=== PATIENT | female | born 1995 | race Caucasian/White ===

== ENCOUNTER 2016-03-03 16:25 | Emergency (ER) | payer OTHER ==
[~2016-03-03] VITALS: Ht 182.9 cm; Wt 64.0 kg
[~2016-03-03 16:25] MED LIST: PRLSR20 PO
[2016-03-03 16:28] VITALS: TEMP 36.5; Ht 182.9 cm; Wt 64.0 kg
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
[2016-03-03 18:32] VITALS: BP 132/96; PULSE 105; O2SAT 98
[2016-03-03] MEDS ORDERED: TRAM-10 PO (18:32)
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
[2016-09-18] MEDS ORDERED: PRT40 PO (12:53)
[2016-09-18] MEDS ORDERED: FRCT/ PO (13:19)
== END 2016-03-03 18:55 | disposition home or self-care (01) ==
LOC: C.EDB 16:27 → C.EDD 18:55
DX: S20.229A Contusion of unspecified back wall of thorax, initial encounter (principal); Y04.0XXA Assault by unarmed brawl or fight, initial encounter; M54.2 Cervicalgia; R07.81 Pleurodynia; J45.909 Unspecified asthma, uncomplicated; F17.210 Nicotine dependence, cigarettes, uncomplicated

== ENCOUNTER 2016-09-16 19:44 | Inpatient (IN) | payer OTHER ==
[~2016-09-16] VITALS: Ht 182.9 cm; Wt 81.4 kg
[2016-09-16] MEDS ORDERED: SODIUM CHLORIDE 0.9% 1000ML 2,000 ML IV STA (20:22)
[2016-09-16] MEDS ORDERED: ACETAMINOPHEN IV 650 MG in EMPTY BAG 0 ML IV STA (20:22)
[2016-09-16] MEDS ORDERED: ONDANSETRON INJ 2 MG/ML 2 ML VIAL IV STA (20:22)
[2016-09-16] MEDS ORDERED: ACETAMINOPHEN 1000 MG/100 ML IV IV ONE (20:31)
[2016-09-16] MEDS ORDERED: ASPI-390 PO (20:41)
[2016-09-16 20:45] LABS: HEMATOCRIT 24.6 % (37-47); MEAN CELL VOLUME 97.2 fL (80-100); MEAN CORPUSCULAR HEMOGLOBIN 32.8 pg (25-34); MEAN CORPUSCULAR HGB CONC 33.7 g/dl (32-36); MEAN PLATELET VOLUME 8.4 fL (7.4-10.4); PLATELET COUNT 222 K/uL (130-400); RED BLOOD COUNT 2.53 M/uL (4.2-5.4); WHITE BLOOD COUNT 9.34 K/uL (4.8-10.8)
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
[2016-09-16 21:08] LABS: ALT/SGPT 16 U/L (12-78); BLOOD UREA NITROGEN 35 mg/dl (7-18); BUN/CREATININE RATIO 36.3 (10-20); CALCIUM 7.9 mg/dl (8.5-10.1); CARBON DIOXIDE 29 mmol/L (21-32); CHLORIDE 110 mmol/L (98-107); CREATININE 0.97 mg/dl (0.60-1.20); GLUCOSE 95 mg/dl (70-99); POTASSIUM 3.9 mmol/L (3.5-5.1); SODIUM 143 mmol/L (136-145)
--- NOTE | 2016-09-16 21:09 | DIAGNOSTIC IMAGING REPORT ---
HEAD WITHOUT CONTRAST (CT) CLINICAL HISTORY: 21 years-old Female with acute headache and lightheadedness. TECHNIQUE: Multiple axial CT images of the head were obtained without contrast. A dose lowering technique was utilized adhering to the principles of ALARA. CT DOSE: 537.48 mGy.cm COMPARISON: CT head 07/06/2015. FINDINGS: No acute intracranial hemorrhage, midline shift, mass, large territorial ischemia or abnormal extra-axial collection. The calvarium is intact. The mastoid air cells, and middle ear cavities are clear. There is mild mucosal thickening of the posterior right ethmoid air cells and the frontal sinuses bilaterally. Soft tissues are within normal limits. IMPRESSION: 1. No acute intracranial abnormality. 2. Mild frontal and ethmoid sinus disease. The above report was generated using voice recognition software. It may contain grammatical, syntax or spelling errors. Electronically signed by: Erik Ventura M.D. 09/16/2016 9:08 PM Dictated Date/Time: 09/16/2016 9:06 PM
[2016-09-16 21:11] LABS: ALKALINE PHOSPHATASE 50 U/L (45-117); AST/SGOT 12 U/L (15-37)
[2016-09-16 21:24] LABS: BASO % 0.2 %; BASO ABS # 0.02 K/uL (0-0.2); COMPLETE YES; EOS % 0.7 %; IG% 0.3 %; LYMPH % 25.8 %; LYMPH ABS # 2.41 K/uL (1.2-3.4); MONO % 6.7 %; NEUT % 66.3 %
[2016-09-16] MEDS ORDERED: PANTOprazole INJ 80 MG in DEXTROSE 5% 100ML 100 ML IV SCH (21:30)
[2016-09-16 21:44] LABS: URINE APPEARANCE CLEAR (CLEAR); URINE BILIRUBIN NEG (NEG); URINE COLOR YELLOW; URINE NITRITE NEG (NEG); URINE PH 5.5 (4.5-7.5); URINE SPECIFIC GRAVITY 1.031 (1.000-1.030); UROBILINOGEN NEG (NEG); ZZUR CULT IF INDIC CLEAN CATCH NO
[2016-09-16 21:45] LABS: MANUAL MICROSCOPIC REQUIRED? NO; REVIEW REQ? NO
--- NOTE | 2016-09-16 22:03 | DIAGNOSTIC IMAGING REPORT ---
ABDOMEN 2VIEW W/PA CHEST RTN HISTORY: 21 years-old Female acute vomiting and nausea. COMPARISON: Chest radiograph 03/03/2016, pelvis radiographs 05/16/2014 and 06/07/2006 TECHNIQUE: Frontal view of the chest with erect and supine views of the abdomen FINDINGS: Cardiomediastinal and hilar silhouettes are within normal limits. No pneumothorax, pleural effusion or focal airspace consolidation. No pneumoperitoneum on the upright view of the abdomen. The bowel gas pattern is nonobstructive. Negative for urolithiasis or acute fracture. 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 Additionally, there are subcortical cystic changes about the left hip. IMPRESSION: 1. No acute cardiopulmonary process. 2. Nonobstructive bowel gas pattern without pneumoperitoneum. 3. 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 The above report was generated using voice recognition software. It may contain grammatical, syntax or spelling errors. Electronically signed by: Erik Ventura M.D. 09/16/2016 10:02 PM Dictated Date/Time: 09/16/2016 9:59 PM
[2016-09-16] MEDS ORDERED: OPTIRAY 320 IV PRN (22:15)
--- NOTE | 2016-09-16 22:26 | DIAGNOSTIC IMAGING REPORT ---
(CHEST FOR PE) ANGIO WITH CT DOSE: 248.96 mGy.cm HISTORY: 21 years-old Female acute dizziness and lightheadedness TECHNIQUE: Multiple CTA images of the chest were obtained after the intravenous administration of 68 ml Optiray 320. Coronal and sagittal MIPS were obtained from the axial data set and were submitted for review. A dose lowering technique was utilized adhering to the principles of ALARA. COMPARISON: CT chest 07/06/2015. FINDINGS: CTA: There is adequate opacification of the pulmonary arteries to the level of the subsegmental branches without convincing evidence of acute pulmonary embolism. The thoracic aorta is normal in course and caliber. Heart size is normal. CT CHEST: No axillary or mediastinal adenopathy by CT size criteria. There is minimal dependent bibasilar atelectasis. There is no pneumothorax or pleural effusion. The imaged upper abdominal structures are normal. The osseous structures appear intact. IMPRESSION: No acute cardiopulmonary process, specifically no acute aortic pathology or evidence of pulmonary thromboembolic disease. The above report was generated using voice recognition software. It may contain grammatical, syntax or spelling errors. Electronically signed by: Erik Ventura M.D. 09/16/2016 10:25 PM Dictated Date/Time: 09/16/2016 10:21 PM
[2016-09-16] MEDS ORDERED: ONDANSETRON INJ 2 MG/ML 2 ML VIAL IV PRN (22:45)
[2016-09-16] MEDS: PANTOprazole INJ 40 MG in DEXTROSE 5% 100ML IV SCH (23:17)
[2016-09-17] VITALS (25 sets, daily range): BP systolic 80–120; BP diastolic 45–83; PULSE 80–101; TEMP 36.3–37; O2SAT 94–100; Ht 182.9 cm; Wt 81.4 kg
[2016-09-17 00:17] LABS: HEMATOCRIT 21.3 % (37-47)
[2016-09-17] MEDS: NSS + 20MEQ KCL 1000ML 1,000 ML IV SCH ×3 (00:24→15:39)
[2016-09-17] MEDS: ACETAMINOPHEN 325 MG TAB PO PRN ×2 (00:35→06:27)
--- NOTE | 2016-09-17 00:46 | HISTORY & PHYSICAL EXAMINATION ---
DATE OF ADMISSION: 09/16/2016 PRIMARY CARE PHYSICIAN: From [facility]. CHIEF COMPLAINT: Nausea, vomiting and dizziness for the last 1 week and worse since this morning. HISTORY OF PRESENT COMPLAINT: She is a 21-year-old female with significant past medical history, including migraine; apparently, has been complaining of nausea and dizziness for the last 1 week. The condition got worse and early this morning. around 4:00 a.m., she vomited. She was feeling more dizzy from that point and she was brought into the Emergency Room for further evaluation. In the ER, she was hemodynamically stable. She was noted to have a hemoglobin of 8.3 and also her stool was positive for blood. She also had shortness of breath and for that reason, she underwent a CAT scan of the chest that did not show any acute pulmonary embolism, but given her loss of hemoglobin from 15 in the last year to 8 today and also guaiac positive stool, she was admitted to telemetry unit for continuation of treatment. She denies to have any history of peptic ulcer disease or a history of GERD. She did not take any NSAIDs. She has been a smoker, but not been for the last 3 weeks or so. She did not have any hematemesis and no bright red blood per rectum and she has some epigastric discomfort right now, but no other symptoms. PAST MEDICAL HISTORY: Only significant for migraine. PAST SURGICAL HISTORY: Minor hip surgery, jaw surgery and also tonsillectomy as a child. FAMILY HISTORY: Significant for heart and lung disease, including grandparents, but not to her parents. SOCIAL HISTORY: She is in retirement right now. She used to smoke 1 pack per day and she used to drink heavily, but not for the last 21 days. REVIEW OF SYSTEMS: Other systems review is unremarkable, except those in the history of present complaint.No history of Excessive Menstrual bleed. PHYSICAL EXAMINATION: GENERAL: On examination in the Emergency Room, she was not having any acute distress. VITAL SIGNS: Temperature 36.6, pulse was 105, blood pressure 129/68, saturation 100% on room air. HEENT: Unremarkable. She looked pale otherwise. NECK: Supple, no JVD, no bruit. CHEST: Clear to auscultate bilaterally. HEART: S1, S2 regular. ABDOMEN: Soft, benign, mildly tender in the epigastrium. No organomegaly. Bowel sounds present. RECTAL: Rectal exam by the ER physician. melanotic stool and that was positive for blood. CENTRAL NERVOUS SYSTEM: Alert, awake, oriented x3 and no focal sensory and/or motor deficit appreciated. LABORATORY DATA: Noted today, white count was 9.34, H&H 8.3/24.6, platelet 222, her hemoglobin was 15 in October of 2015. Chemistry: Sodium 143, potassium 3.9, chloride 110, carbon dioxide 29, BUN 35, creatinine 0.97, random glucose 95, calcium 7.9, magnesium 2.0. Total bilirubin 1.2. AST, ALT, alkaline phosphatase unremarkable. Albumin 3.1, lipase 191. D-dimer was 990. UA examination unremarkable. CT of the head negative. CT chest for pulmonary embolism negative. CT of the abdomen and pelvis negative. IMPRESSION AND PLAN: 1. Acute gastrointestinal bleed.Likely from Upper GI.The differential, most likely gastritis, peptic ulcer disease secondary to use of medications (Excedrin for migraine). Doubt any Lower GI Bleed .The patient has black stool .positive for Blood. She was started with intravenous Protonix. It will be continued and she will be admitted to telemetry unit. Hemoglobin and hematocrit q. 4 hourly and transfuse, if hemoglobin drops below 7. Gastrointestinal consultation for possible endoscopy down the line. 2. Migraine. She has a history of migraine. She takes Excedrin Migraine for that. We will hold that and give Tylenol, if needed, while in the hospital. 3. Gastrointestinal prophylaxis with a Protonix drip. 4. Deep venous thrombosis prophylaxis with SCDs. 5. Code status, she will be a full code. In my clinical judgment, the beneficiary meets criteria as per CMS for 2 midnight stay in the hospital. YODIT
[2016-09-17 04:16] LABS: HEMATOCRIT 20.6 % (37-47); MEAN CELL VOLUME 98.6 fL (80-100); MEAN CORPUSCULAR HGB CONC 33.5 g/dl (32-36); PLATELET COUNT 176 K/uL (130-400); RED BLOOD COUNT 2.09 M/uL (4.2-5.4); WHITE BLOOD COUNT 8.27 K/uL (4.8-10.8)
[2016-09-17 04:18] LABS: CALCIUM 7.5 mg/dl (8.5-10.1); CREATININE 0.72 mg/dl (0.60-1.20); POTASSIUM 4.5 mmol/L (3.5-5.1)
[2016-09-17] MEDS: PANTOprazole INJ 40 MG in DEXTROSE 5% 100ML IV SCH ×4 (04:19→15:36)
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
[2016-09-17 09:36] LABS: HEMATOCRIT 26.4 % (37-47)
[2016-09-17] MEDS ORDERED: LIDOCAINE HCL 2% 2 ML VIAL (20MG/ML) ONE (10:12)
[2016-09-17] MEDS ORDERED: MIDAZOLAM HCL 1 MG/ML 2ML VIAL ONE (10:12)
[2016-09-17] MEDS ORDERED: PROPOFOL IV EMULSION 10 MG/ML 20 ML VIAL IV ONE (10:12)
--- NOTE | 2016-09-17 10:38 | GI REPORT ---
Procedure Date: 09/17/2016 10:14 AM Procedure: Upper GI endoscopy Indications: Acute post hemorrhagic anemia, Melena Medicines: Propofol per Anesthesia Complications: No immediate complications. Estimated blood loss: None. Estimated Blood Loss: Estimated blood loss: none. Procedure: Pre-Anesthesia Assessment: - Prior to the procedure, a History and Physical was performed, and patient medications, allergies and sensitivities were reviewed. The patient's tolerance of previous anesthesia was reviewed. - ASA Grade Assessment: III - A patient with severe systemic disease. After obtaining informed consent, the endoscope was passed under direct vision. Throughout the procedure, the patient's blood pressure, pulse, and oxygen saturations were monitored continuously. The scope was introduced through the mouth, and advanced to the third part of duodenum. The upper GI endoscopy was accomplished with ease. The patient tolerated the procedure well. Findings: The upper third of the esophagus, middle third of the esophagus and lower third of the esophagus were normal. The Z-line was regular and was found 40 cm from the incisors. A small hiatus hernia was present. One non-bleeding cratered gastric ulcer with a visible vessel was found at the incisura. The lesion was 15 mm in largest dimension. Coagulation for bleeding prevention using bipolar probe was successful. Biopsies were taken with a cold forceps in the entire examined stomach for Helicobacter pylori testing. The examined duodenum was normal. Impression: - Normal upper third of esophagus, middle third of esophagus and lower third of esophagus. - Z-line regular, 40 cm from the incisors. - Small hiatus hernia. - Non-bleeding gastric ulcer with a visible vessel. Treated with bipolar cautery. - There were no clots or active bleeding in the stomach. - Normal examined duodenum. - Biopsies were taken with a cold forceps for Helicobacter pylori testing. Recommendation: - Await pathology results. - [facility] patient [facility] for [facility] care. Von Wild M.D. Von Wild MD 09/17/2016 10:38:41 AM This report has been signed electronically. Note Initiated On: 09/17/2016 10:14 AM I attest to the content of the Intraoperative Record and orders documented therein, exceptions below
[2016-09-17] MEDS ORDERED: PHENYLEPHRINE 100MCG/ML 5ML SYR ONE (10:40)
--- NOTE | 2016-09-17 10:44 | Anesthesiology Progress Note ---
Anesthesia Post Op Note Date & Time Sep 17, 2016 at 10:43 Vital Signs Pain Intensity: 10.0 Vital Signs Past 12 Hours Date Time Temp Pulse Resp B/P (MAP) Pulse Ox O2 Delivery O2 Flow Rate FiO2 09/17/16 10:32 82 16 100/46 (64) 96 Room Air 09/17/16 09:45 36.6 88 16 91/52 (65) 98 Room Air 09/17/16 08:00 Room Air 09/17/16 08:00 36.7 93 16 120/83 97 09/17/16 07:00 95 18 96/60 98 09/17/16 06:45 36.5 99 18 89/52 99 09/17/16 06:30 36.5 89 18 89/54 98 09/17/16 06:20 36.5 86 18 83/52 99 09/17/16 06:10 36.4 96 18 88/55 99 09/17/16 06:00 36.4 87 20 80/49 99 09/17/16 05:44 36.6 95 18 94/60 99 09/17/16 05:30 36.5 89 20 86/53 09/17/16 05:15 36.3 101 18 83/45 98 09/17/16 04:55 36.3 83 20 94/55 09/17/16 04:50 36.3 85 20 99/65 100 09/17/16 04:00 Room Air 09/17/16 03:41 36.5 89 17 92/60 (71) 99 Room Air 09/17/16 00:05 36.8 96 18 114/75 99 Room Air 09/16/16 23:26 106 18 118/61 96 Room Air Notes Mental Status: alert / awake / arousable, participated in evaluation Pt Amnestic to Procedure: Yes Nausea / Vomiting: adequately controlled Pain: adequately controlled Airway Patency, RR, SpO2: stable & adequate BP & HR: stable & adequate Hydration State: stable & adequate Anesthetic Complications: no major complications apparent
[2016-09-17] MEDS ORDERED: BUTALBITAL/ACETAMIN/CAFFEINE TAB PO STA (16:29)
--- NOTE | 2016-09-17 16:40 | Progress Note ---
Medicine Progress Note Date & Time of Visit: Sep 17, 2016 at 15:27. Subjective 21 yo alcoholic with migraines who uses Excedrin frequently for headaches, presents from the longterm with an UGIB. EGD on 09/17 and was found to have a non- bleeding ulcer. -tolerating clears post-EGD -some epigastric abdominal pain present -reports a headache currently -denies CP/SOB Objective Last 8 Hrs Date Time Temp Pulse Resp B/P (MAP) Pulse Ox O2 Delivery O2 Flow Rate FiO2 09/17/16 13:30 97 113/78 (90) 100 09/17/16 13:00 98 96/62 (73) 99 09/17/16 12:30 80 99/67 (78) 99 09/17/16 12:15 93 16 104/73 (83) 99 09/17/16 12:00 Room Air 09/17/16 12:00 84 18 103/68 (80) 100 09/17/16 11:45 36.8 84 107/78 (88) 09/17/16 11:27 36.4 81 18 104/71 (82) 100 Room Air 09/17/16 11:13 88 20 115/63 (80) 100 Room Air 09/17/16 11:02 80 18 102/46 (64) 96 Room Air 09/17/16 10:53 80 16 102/46 (64) 96 Room Air 09/17/16 10:42 86 16 90/34 (52) 97 Room Air 09/17/16 10:32 82 16 100/46 (64) 96 Room Air 09/17/16 09:45 36.6 88 16 91/52 (65) 98 Room Air 09/17/16 08:00 Room Air 09/17/16 08:00 36.7 93 16 120/83 97 Physical Exam: GEN: WNWD, in no acute distress, alert and appropriate HEENT: NC/AT, pupils equal and reactive, normal sclerae, MMM CARDIO: reg rate, S1/2 heard without m/g/r LUNGS: CTA bilaterally, no crackles, rales or wheezes, good diaphragmatic excursion ABD: soft, TTP in epigastric area, non-distended, no rebound or guarding, +BS EXTREMITY: RP and DP palpable 2+ bilat, no LE swelling or edema, extremities are warm and well-perfused NEURO: CN 2-12 intact, no gross focal deficits. MUSC: 5/5 strength throughout SKIN: warm and dry Laboratory Results: 09/17/16 03:45 09/17/16 09:18 09/17/16 03:45 Test 09/16/16 20:35 09/16/16 21:25 09/16/16 21:35 09/17/16 03:45 Immature Granulocyte % (Auto) 0.3 % White Blood Count 9.34 K/uL (4.8-10.8) Red Blood Count 2.53 M/uL (4.2-5.4) 2.09 M/uL (4.2-5.4) Hemoglobin 8.3 g/dL (12.0-16.0) Hematocrit 24.6 % (37-47) Mean Corpuscular Volume 97.2 fL (80-100) 98.6 fL (80-100) Mean Corpuscular Hemoglobin 32.8 pg (25-34) 33.0 pg (25-34) Mean Corpuscular Hemoglobin Concent 33.7 g/dl (32-36) 33.5 g/dl (32-36) Platelet Count 222 K/uL (130-400) Mean Platelet Volume 8.4 fL (7.4-10.4) 8.0 fL (7.4-10.4) Neutrophils (%) (Auto) 66.3 % Lymphocytes (%) (Auto) 25.8 % Monocytes (%) (Auto) 6.7 % Eosinophils (%) (Auto) 0.7 % Basophils (%) (Auto) 0.2 % Neutrophils # (Auto) 6.18 K/uL (1.4-6.5) Lymphocytes # (Auto) 2.41 K/uL (1.2-3.4) Monocytes # (Auto) 0.63 K/uL (0.11-0.59) Eosinophils # (Auto) 0.07 K/uL (0-0.5) Basophils # (Auto) 0.02 K/uL (0-0.2) Immature Granulocyte # (Auto) 0.03 K/uL (0.00-0.02) Red Blood Cell Morphology Unremarkable D-Dimer 990 ug/L FEU (0-500) Magnesium Level 2.0 mg/dl (1.8-2.4) Total Bilirubin 0.2 mg/dl (0.2-1) Direct Bilirubin < 0.1 mg/dl (0-0.2) Aspartate Amino Transf (AST/SGOT) 12 U/L (15-37) Alanine Aminotransferase (ALT/SGPT) 16 U/L (12-78) Alkaline Phosphatase 50 U/L (45-117) Total Protein 5.5 gm/dl (6.4-8.2) Albumin 3.1 gm/dl (3.4-5.0) Lipase 191 U/L (73-393) Urine Color YELLOW Urine Appearance CLEAR (CLEAR) Urine pH 5.5 (4.5-7.5) Urine Specific [place] 1.031 (1.000-1.030) Urine Protein NEG (NEG) Urine Glucose (UA) NEG (NEG) Urine Ketones TRACE (NEG) Urine Occult Blood NEG (NEG) Urine Nitrite NEG (NEG) Urine Bilirubin NEG (NEG) Urine Urobilinogen NEG (NEG) Urine Leukocyte Esterase NEG (NEG) Urine Test NEG (NEG) RDW Standard Deviation 44.7 fL (36.4-46.3) RDW Coefficient of Variation 12.5 % (11.5-14.5) Anion Gap 2.0 mmol/L (3-11) Est Creatinine Clear Calc Drug Dose 142.7 ml/min Estimated GFR () 138.7 Estimated GFR (Non- 119.7 BUN/Creatinine Ratio 34.0 (10-20) Calcium Level 7.5 mg/dl (8.5-10.1) Date/Time Source Procedure Growth Status 09/17/16 00:27 Nasal MRSA DNA Surveillance Screen - Final Specimen Negative for MRSA by DNA Probe Complete Last 24 Hours Test 09/16/16 20:35 09/16/16 21:25 09/16/16 21:35 09/17/16 00:07 White Blood Count 9.34 K/uL Red Blood Count 2.53 M/uL Hemoglobin 8.3 g/dL 7.4 g/dL Hematocrit 24.6 % 21.3 % Mean Corpuscular Volume 97.2 fL Mean Corpuscular Hemoglobin 32.8 pg Mean Corpuscular Hemoglobin Concent 33.7 g/dl Platelet Count 222 K/uL Mean Platelet Volume 8.4 fL Neutrophils (%) (Auto) 66.3 % Lymphocytes (%) (Auto) 25.8 % Monocytes (%) (Auto) 6.7 % Eosinophils (%) (Auto) 0.7 % Basophils (%) (Auto) 0.2 % Neutrophils # (Auto) 6.18 K/uL Lymphocytes # (Auto) 2.41 K/uL Monocytes # (Auto) 0.63 K/uL Eosinophils # (Auto) 0.07 K/uL Basophils # (Auto) 0.02 K/uL RDW Standard Deviation 44.0 fL RDW Coefficient of Variation 12.4 % Immature Granulocyte % (Auto) 0.3 % Immature Granulocyte # (Auto) 0.03 K/uL Red Blood Cell Morphology Unremarkable D-Dimer 990 ug/L FEU Sodium Level 143 mmol/L Potassium Level 3.9 mmol/L Chloride Level 110 mmol/L Carbon Dioxide Level 29 mmol/L Anion Gap 4.0 mmol/L Blood Urea Nitrogen 35 mg/dl Creatinine 0.97 mg/dl Est Creatinine Clear Calc Drug Dose 105.9 ml/min Estimated GFR () 96.8 Estimated GFR (Non- 83.5 BUN/Creatinine Ratio 36.3 Random Glucose 95 mg/dl Calcium Level 7.9 mg/dl Magnesium Level 2.0 mg/dl Total Bilirubin 0.2 mg/dl Direct Bilirubin < 0.1 mg/dl Aspartate Amino Transf (AST/SGOT) 12 U/L Alanine Aminotransferase (ALT/SGPT) 16 U/L Alkaline Phosphatase 50 U/L Total Protein 5.5 gm/dl Albumin 3.1 gm/dl Lipase 191 U/L Urine Color YELLOW Urine Appearance CLEAR Urine pH 5.5 Urine Specific [place] 1.031 Urine Protein NEG Urine Glucose (UA) NEG Urine Ketones TRACE Urine Occult Blood NEG Urine Nitrite NEG Urine Bilirubin NEG Urine Urobilinogen NEG Urine Leukocyte Esterase NEG Urine Test NEG Test 09/17/16 03:45 09/17/16 09:18 White Blood Count 8.27 K/uL Red Blood Count 2.09 M/uL Hemoglobin 6.9 g/dL 8.8 g/dL Hematocrit 20.6 % 26.4 % Mean Corpuscular Volume 98.6 fL Mean Corpuscular Hemoglobin 33.0 pg Mean Corpuscular Hemoglobin Concent 33.5 g/dl RDW Standard Deviation 44.7 fL RDW Coefficient of Variation 12.5 % Platelet Count 176 K/uL Mean Platelet Volume 8.0 fL Sodium Level 144 mmol/L Potassium Level 4.5 mmol/L Chloride Level 114 mmol/L Carbon Dioxide Level 28 mmol/L Anion Gap 2.0 mmol/L Blood Urea Nitrogen 24 mg/dl Creatinine 0.72 mg/dl Est Creatinine Clear Calc Drug Dose 142.7 ml/min Estimated GFR () 138.7 Estimated GFR (Non- 119.7 BUN/Creatinine Ratio 34.0 Random Glucose 85 mg/dl Calcium Level 7.5 mg/dl Date/Time Source Procedure Growth Status 09/17/16 00:27 Nasal MRSA DNA Surveillance Screen - Final Specimen Negative for MRSA by DNA Probe Complete Assessment & Plan 21 yo alcoholic with migraines who uses Excedrin frequently for headaches, presents from the longterm with an UGIB. EGD on 09/17 and was found to have a non- bleeding ulcer. 1. UGIB 2/ PUD-heavy alcohol use until June when she was incarcerated along with frequent NSAID use to manage chronic migraines. Will need to use non- NSAID pain relief (see below). Cont Protonix BID. Apprec GI recs. 2. Anemia 2/ #1-received 2 units of blood overnight with good post- transfusion H/H. Monitor H/H in am. 3. Migraine-currently having withdrawal from caffeine with none for one week and normally drinks 6 cups daily. Trial of Fioricet now--ok to drink some caffeine. 4. h/o drug use including meth, oxy, marajuana use--stopped since June when incarceration began-no concern for withdrawal. 5. h/o ETOH use-none since June when incarcerated-no concern for withdrawal. DVT proph: SCDs Full Code Dispo-likely home in 1-2 days. DO [facility] Consultants: GI Current Inpatient Medications: Current Inpatient Medications Medications (Trade) Dose Ordered Sig/Cole Route Start Time Stop Time Status Last Admin Dose Admin Ioversol (Optiray 320) 100 ml UD PRN IV 09/16/16 22:15 09/20/16 22:14 Potassium Chloride/Sodium Chloride 1,000 ml @ 100 mls/hr Q10H IV 09/17/16 00:30 10/17/16 00:29 09/17/16 08:33 100 MLS/HR Acetaminophen (Tylenol Tab) 650 mg Q4H PRN PO 09/16/16 22:45 10/16/16 22:44 09/17/16 06:27 650 MG Ondansetron HCl (Zofran Inj) 4 mg Q6H PRN IV 09/16/16 22:45 10/16/16 22:44 Pantoprazole Sodium 40 mg/ Dextrose 100 ml @ 20 mls/hr Q5H IV 09/16/16 23:00 10/16/16 22:59 09/17/16 08:32 20 MLS/HR
[2016-09-17] MEDS: PANTOprazole SOD 40 MG TAB PO SCH (23:22)
[2016-09-18] VITALS: O2SAT 100
[2016-09-18] MEDS ORDERED: LIDOCAINE HCL 2% VISC SOLN 20 ML UDC MT PRN (02:00)
[2016-09-18] MEDS: NSS + 20MEQ KCL 1000ML 1,000 ML IV SCH (02:17)
[2016-09-18 04:00] VITALS: O2SAT 100
[2016-09-18 04:08] VITALS: BP 111/76; PULSE 89; TEMP 36.8; O2SAT 98
[2016-09-18 06:32] LABS: HEMATOCRIT 28.3 % (37-47); MEAN CORPUSCULAR HEMOGLOBIN 31.5 pg (25-34); MEAN CORPUSCULAR HGB CONC 33.2 g/dl (32-36); MEAN PLATELET VOLUME 8.4 fL (7.4-10.4); PLATELET COUNT 195 K/uL (130-400); RED BLOOD COUNT 2.98 M/uL (4.2-5.4); WHITE BLOOD COUNT 9.27 K/uL (4.8-10.8)
[2016-09-18 07:13] LABS: CALCIUM 8.1 mg/dl (8.5-10.1); CREATININE 0.69 mg/dl (0.60-1.20)
[2016-09-18 07:48] VITALS: BP 131/71; PULSE 76; TEMP 36.8; O2SAT 96
[2016-09-18] MEDS: PANTOprazole SOD 40 MG TAB PO SCH (07:57)
--- NOTE | 2016-09-18 10:20 | Gastroenterology Progress Note ---
Progress Note Date of Service: Sep 18, 2016 Subjective Pt evaluation today including: conversation w/ patient, physical exam, chart review, lab review Pt seen and examined this AM. No acute events overnight. She tells me she feels well and wants to leave the hospital. Is having mild, epigastric pain. No radiation of pain. Denies nausea or vomiting. Has not had any more black stools. Denies bloody stools. No fever, chills, CP, SOB. Pathology for H.Pylori pending. EGD 09/17/16: Normal upper third of esophagus, middle third of esophagus and lower third of esophagus. Z-line regular, 40 cm from the incisors. Small hiatus hernia. Non-bleeding gastric ulcer with a visible vessel. Treated with bipolar cautery. There were no clots or active bleeding in the stomach. Normal examined duodenum. Biopsies were taken with a cold forceps for Helicobacter pylori testing. Review of Systems Constitutional: No fever, No chills Respiratory: No cough, No shortness of breath Cardiac: No chest pain, No edema Abdomen: + pain (improved, at epigastric region), No nausea, No vomiting, No diarrhea, No constipation, No GI bleeding Medications Current Inpatient Medications Medications (Trade) Dose Ordered Sig/Cole Route Start Time Stop Time Status Last Admin Dose Admin Ioversol (Optiray 320) 100 ml UD PRN IV 09/16/16 22:15 09/20/16 22:14 Potassium Chloride/Sodium Chloride 1,000 ml @ 100 mls/hr Q10H IV 09/17/16 00:30 10/17/16 00:29 09/18/16 02:17 100 MLS/HR Acetaminophen (Tylenol Tab) 650 mg Q4H PRN PO 09/16/16 22:45 10/16/16 22:44 09/17/16 06:27 650 MG Ondansetron HCl (Zofran Inj) 4 mg Q6H PRN IV 09/16/16 22:45 10/16/16 22:44 Pantoprazole Sodium (Protonix Tab) 40 mg BID PO 09/17/16 21:00 10/17/16 20:59 09/18/16 07:57 40 MG Lidocaine HCl (Viscous Lidocaine 2% Soln) 20 ml Q8H PRN MT 09/18/16 02:00 10/18/16 01:59 09/18/16 02:16 20 ML Objective Vital Signs Date Time Temp Pulse Resp B/P (MAP) Pulse Ox O2 Delivery O2 Flow Rate FiO2 09/18/16 08:00 Room Air 09/18/16 07:48 36.8 76 18 131/71 (91) 96 09/18/16 04:08 36.8 89 17 111/76 (88) 98 Room Air 09/18/16 04:00 100 Room Air 09/18/16 00:00 100 Room Air 09/17/16 23:44 37.0 94 17 92/57 (69) 99 Room Air 09/17/16 20:00 100 Room Air 09/17/16 19:42 36.9 92 18 106/70 (82) 100 Room Air 09/17/16 16:10 36.7 89 18 103/68 (80) 100 Room Air 09/17/16 16:00 Room Air 09/17/16 13:30 97 113/78 (90) 100 09/17/16 13:00 98 96/62 (73) 99 09/17/16 12:30 80 99/67 (78) 99 09/17/16 12:15 93 16 104/73 (83) 99 09/17/16 12:00 Room Air 09/17/16 12:00 84 18 103/68 (80) 100 09/17/16 11:45 36.8 84 107/78 (88) 09/17/16 11:27 36.4 81 18 104/71 (82) 100 Room Air 09/17/16 11:13 88 20 115/63 (80) 100 Room Air 09/17/16 11:02 80 18 102/46 (64) 96 Room Air 09/17/16 10:53 80 16 102/46 (64) 96 Room Air 09/17/16 10:42 86 16 90/34 (52) 97 Room Air 09/17/16 10:32 82 16 100/46 (64) 96 Room Air Physical Exam General Appearance: no apparent distress Eyes: PERRL ENT: hearing grossly normal Neck: supple Respiratory/Chest: lungs clear, normal breath sounds Cardiovascular: regular rate, rhythm, no edema, no gallop Abdomen: normal bowel sounds, non tender, soft, no organomegaly Neurologic/Psych: alert, normal mood/affect, oriented x 3 Skin: normal color Laboratory Results Last 24 Hours Test 09/17/16 16:59 09/18/16 06:06 HIV (1&2) Ab and P24 Ag, 4th Gener NEG White Blood Count 9.27 K/uL Red Blood Count 2.98 M/uL Hemoglobin 9.4 g/dL Hematocrit 28.3 % Mean Corpuscular Volume 95.0 fL Mean Corpuscular Hemoglobin 31.5 pg Mean Corpuscular Hemoglobin Concent 33.2 g/dl RDW Standard Deviation 51.6 fL RDW Coefficient of Variation 15.0 % Platelet Count 195 K/uL Mean Platelet Volume 8.4 fL Sodium Level 144 mmol/L Potassium Level 4.0 mmol/L Chloride Level 109 mmol/L Carbon Dioxide Level 31 mmol/L Anion Gap 4.0 mmol/L Blood Urea Nitrogen 8 mg/dl Creatinine 0.69 mg/dl Est Creatinine Clear Calc Drug Dose 148.9 ml/min Estimated GFR () 144.2 Estimated GFR (Non- 124.4 BUN/Creatinine Ratio 11.0 Random Glucose 84 mg/dl Calcium Level 8.1 mg/dl Assessment and Plan Patient is a 21 year old female with history of migraines controlled on NSAIDs and ETOH abuse with acute anemia with HGB 6.9 down from 15 about one year ago with report of melena, epigastric abdominal pain, nausea, lightheadedness, dizziness and new SOB. Symptoms are slightly relieved with IVF and after blood this AM. EGD yesterday with evidence of a nonbleeding gastric ulcer with visible vessel treated with cautery. Pt was doing well overnight. Clear liquids --> advance as tolerated PPI 40 BID x 6 weeks Repeat EGD in 6 weeks No NSAIDs No anticoagulation Consider migraine prophylaxis medication to reduce use of NSAIDs as outpatient GI to sign off. Please call with any questions or concerns. Will need EGD in 6 weeks for recall. Will contact schedulers about this. ATTESTATION: I have performed a history and physical examination of this patient and reviewed the electronic record. Specifically, on physical examination there is no sign of further GI bleeding. I have discussed the case with CLEMENTE Hyatt. The above note reflects my findings, conclusions, and recommendations. Von Wild MD
[2016-09-18 12:11] VITALS: BP 128/68; PULSE 70; TEMP 36.6; O2SAT 97
[2016-09-18] MEDS ORDERED: PRT40 PO (12:53)
--- NOTE | 2016-09-18 13:00 | Discharge Instructions ---
Discharge Instructions Date of Service Sep 18, 2016. Admission Reason for Admission: Gi Bleed Discharge Discharge Diagnosis / Problem: UGIB 2/2 PUD Discharge Goals Goal(s): Prevent Disease Progression Activity Recommendations Activity Limitations: per Instructions/Follow-up section . Instructions / Follow-Up Instructions / Follow-Up Please take Protonix as instructed twice daily until repeat endoscopy in 6 weeks time. [facility] to schedule her for outpatient upper endoscopy in 6 weeks time. You had a biopsy taken from your stomach during the recent procedure in the hospital. You should be contacted with the results of this within one week's time. AVOID all NSAIDs (non-steroidal anti-inflammatory drugs) such as Ibuprofen, Motrin, Naproxen, Aleve, Meloxicam, Mobic, Aspirin. Remember to avoid all products that contain these, too. Things like Excedrin have aspirin in them and need to be stopped/avoided. This being said, you likely had a worsened headache from stopping caffeine this last week. Remember to take your caffeine intake to no more than two cups coffee daily (remember that sodas and tea also have caffeine and those should be counted, too!) You will need a follow-up with the [facility] Physician to follow-up on your anemia and ensure it is not getting worse/assist with getting your medications and providing better options for you to manage your headaches. It was a pleasure taking care of you! Call if you have any questions or problems. You can reach a [facility] hospitalist on duty at [facility] 24 hours a day by calling [phone]. Take care of yourself. Chiqui Menon, [facility] Hospitalist Current Hospital Diet Patient's current hospital diet: Regular Diet Discharge Diet Recommended Diet: Regular Diet Procedures Procedures Performed: EGD Pending Studies Studies pending at discharge: yes List of pending studies: EGD biopsy path pending at discharge. Medical Emergencies . Who to Call and When: Medical Emergencies: If at any time you feel your situation is an emergency, please call 911 immediately. . Non-Emergent Contact Non-Emergency issues call your: Primary Care Provider . . "Provider Documentation" section prepared by Chiqui Menon. . VTE Core Measure Inpt VTE Proph given/why not?: Contraindicated
[2016-09-18] MEDS ORDERED: FRCT/ PO (13:19)
--- NOTE | 2016-09-18 13:27 | Discharge Summary ---
Discharge Summary Date of Service Sep 18, 2016. Discharge Summary Admission Date: Sep 16, 2016 at 22:41 Discharge Date: Sep 18, 2016 Discharge Disposition: Home (to correctional facility) Principal Diagnosis: UGIB 2/2 PUD Procedures: EGD w/ biopsy Vaccinations: None. Consultations: GI Pending Studies/Follow-Up: see instructions below Medication Reconciliation New Medications: Acetamin/Butalbital/Caffeine (Fioricet) 1 Ea Tab 1 TAB PO DAILY PRN for Migraine for 10 Days, #10 TAB Pantoprazole (Pantoprazole Sodium) 40 Mg Tab 40 MG PO BID for 30 Days, #60 TAB 3 Refills Discontinued Medications: Gugxqzx-Otritknyyeujq-Xjfbwylw (Excedrin Migraine) 1 Tab Tab 1 TAB PO BID PRN for Headache Admission Information HPI (per Admitting provider): HISTORY OF PRESENT COMPLAINT: She is a 21-year-old female with significant past medical history, including migraine; apparently, has been complaining of nausea and dizziness for the last 1 week. The condition got worse and early this morning. around 4:00 a.m., she vomited. She was feeling more dizzy from that point and she was brought into the Emergency Room for further evaluation. In the ER, she was hemodynamically stable. She was noted to have a hemoglobin of 8.3 and also her stool was positive for blood. She also had shortness of breath and for that reason, she underwent a CAT scan of the chest that did not show any acute pulmonary embolism, but given her loss of hemoglobin from 15 in the last year to 8 today and also guaiac positive stool, she was admitted to telemetry unit for continuation of treatment. She denies to have any history of peptic ulcer disease or a history of GERD. She did not take any NSAIDs. She has been a smoker, but not been for the last 3 weeks or so. She did not have any hematemesis and no bright red blood per rectum and she has some epigastric discomfort right now, but no other symptoms. Physical Exam (per Admitting): PHYSICAL EXAMINATION: GENERAL: On examination in the Emergency Room, she was not having any acute distress. VITAL SIGNS: Temperature 36.6, pulse was 105, blood pressure 129/68, saturation 100% on room air. HEENT: Unremarkable. She looked pale otherwise. NECK: Supple, no JVD, no bruit. CHEST: Clear to auscultate bilaterally. HEART: S1, S2 regular. ABDOMEN: Soft, benign, mildly tender in the epigastrium. No organomegaly. Bowel sounds present. RECTAL: Rectal exam by the ER physician. melanotic stool and that was positive for blood. CENTRAL NERVOUS SYSTEM: Alert, awake, oriented x3 and no focal sensory and/or motor deficit appreciated. Hospital Course 21 yo alcoholic with migraines who uses Excedrin frequently for headaches, presents from the longterm with an UGIB. EGD on 09/17 and was found to have a non- bleeding ulcer. 1. UGIB 2/2 PUD-heavy alcohol use until June when she was incarcerated along with frequent NSAID use to manage chronic migraines. Will need to use non- NSAID pain relief (see below). Cont Protonix BID. Will need repeat EGD in 6-8 weeks. HIV returned negative. 2. Anemia 2/ #1-received 2 units of blood overnight with good post- transfusion H/H. Monitor H/H in am. 3. Migraine-currently having withdrawal from caffeine with none for one week and normally drinks 6 cups daily. Trial of Fioricet now--ok to drink some caffeine. 4. h/o drug use including meth, oxy, marajuana use--stopped since June when incarceration began-no concern for withdrawal. 5. h/o ETOH use-none since June when incarcerated-no concern for withdrawal. On day of discharge she was afebrile and hemodynamically stable with original presenting symptoms resolving. Physical exam was unremarkable and she was [facility] condition. Total time spent on discharge = 60 minutes This includes examination of the patient, discharge planning, medication reconciliation, and communication with other providers. Discharge Inst[place] [address] Discharge Instructions Patient Name: KARAN LOZANO #[id number] Admit Date: 09/17/1707/08/17 Med Rec: [id number] Att Phy: Chiqui Menon DO Acct ID: [id number] Milvia Phy: [facility] Date: 1995 Fam Phy: [facility] Age: 21 Location: C.2T Sex: F Room/Bed: [facility] CC: [facility] [place], Chiqui M., DO Please take this sheet to every appointment for the next month Discharge Instructions Date of Service Sep 18, 2016. Admission Reason for Admission: Gi Bleed Discharge Discharge Diagnosis / Problem: UGIB 2/2 PUD Discharge Goals Goal(s): Prevent Disease Progression Activity Recommendations Activity Limitations: per Instructions/Follow-up section . Instructions / Follow-Up Instructions / Follow-Up Please take Protonix as instructed twice daily until repeat endoscopy in 6 weeks time. [facility] to schedule her for outpatient upper endoscopy in 6 weeks time. You had a biopsy taken from your stomach during the recent procedure in the hospital. You should be contacted with the results of this within one week's time. AVOID all NSAIDs (non-steroidal anti-inflammatory drugs) such as Ibuprofen, Motrin, Naproxen, Aleve, Meloxicam, Mobic, Aspirin. Remember to avoid all products that contain these, too. Things like Excedrin have aspirin in them and need to be stopped/avoided. This being said, you likely had a worsened headache from stopping caffeine this last week. Remember to take your caffeine intake to no more than two cups coffee daily (remember that sodas and tea also have caffeine and those should be counted, too!) You will need a follow-up with the [facility] Phys[facility] to follow-up on your anemia and ensure it is not getting worse/assist with getting your medications and providing better options for you to manage your headaches. It was a pleasure taking care of you! Call if you have any questions or problems. You can reach a [facility] hospitalist on duty at [facility] 24 hours a day by calling [phone]. Take care of yourself. Chiqui Menon DO [facility] Hospitalist Current Hospital Diet Patient's current hospital diet: Regular Diet Discharge Diet Recommended Diet: Regular Diet Procedures Procedures Performed: EGD Pending Studies Studies pending at discharge: yes List of pending studies: EGD biopsy path pending at discharge. Medical Emergencies . Who to Call and When: Medical Emergencies: If at any time you feel your situation is an emergency, please call 911 immediately. . Non-Emergent Contact Non-Emergency issues call your: Primary Care Provider . . "Provider Documentation" section prepared by Chiqui Menon. . VTE Core Measure Inpt VTE Proph given/why not?: Contraindicated <Electronically signed by Chiqui Menon DO> Signed: 09/18/16 1300 Signed: The status of this report is Signed * If report status is Draft, the document has not been finalized by the responsible provider.
[2016-09-18 13:36] VITALS: BP 128/68; PULSE 70; TEMP 36.6; O2SAT 97
== END 2016-09-18 14:21 | disposition home or self-care (01) | DRG 378 ==
LOC: C.EDB 19:47 → OBSVTOIN 22:41 → C.2T 22:41 → ENRESERV 22:46 → C.2T 23:15 → UNDOADMOB 23:15
PROVIDERS: ADMIT Internal Medicine; ATTEND Hospitalist
PROC: 0DB68ZX Excision of Stomach, Via Natural or Artificial Opening Endoscopic, Diagnostic (ICD-10-PCS; principal; 2016-09-17 09:40)
DX: K92.2 Gastrointestinal hemorrhage, unspecified (principal); D62 Acute posthemorrhagic anemia; K25.9 Gastric ulcer, unspecified as acute or chronic, without hemorrhage or perforation; K46.9 Unspecified abdominal hernia without obstruction or gangrene; M16.12 Unilateral primary osteoarthritis, left hip; G43.909 Migraine, unspecified, not intractable, without status migrainosus; J30.2 Other seasonal allergic rhinitis; Z87.891 Personal history of nicotine dependence; Z79.1 Long term (current) use of non-steroidal anti-inflammatories (NSAID); Z83.6 Family history of other diseases of the respiratory system; Z82.49 Family history of ischemic heart disease and other diseases of the circulatory system; Z83.3 Family history of diabetes mellitus; Z84.1 Family history of disorders of kidney and ureter; Z91.048 Other nonmedicinal substance allergy status